=== PATIENT | female | born 1980 | race Caucasian/White ===

== ENCOUNTER 2017-12-02 06:52 | Day surgery (SDC) | payer MEDICAID ==
[~2017-12-02] VITALS: Ht 162.6 cm; Wt 91.5 kg
[2017-12-02] MEDS ORDERED: LIDOCAINE HCL/PF 2% 5 ML VIAL IM ONE ×2 (06:53)
[2017-12-02] MEDS ORDERED: ROCURONIUM BROMIDE 10 MG/ML 5 ML VIAL IVP ONE (06:53)
[2017-12-02] MEDS ORDERED: FentaNYL CITRATE-PF 250 MCG/5 ML VIAL IVP ONE (06:53)
[2017-12-02] MEDS ORDERED: PROPOFOL 1% 20 ML VIAL IVP ONE ×2 (06:53)
[2017-12-02] MEDS ORDERED: ONDANSETRON HCL 4 MG/2 ML VIAL IVP ONE ×2 (06:53)
[2017-12-02] MEDS ORDERED: MIDAZOLAM HCL 2 MG/2 ML VIAL IVP ONE (06:53)
[2017-12-02] MEDS ORDERED: KETOROLAC TROMETHAMINE 60 MG/2 ML VIAL IM ONE ×2 (06:53)
[2017-12-02] MEDS ORDERED: DEXAMETHASONE SOD PHOS 4 MG/ML VIAL IVP ONE ×2 (06:53)
[2017-12-02] MEDS ORDERED: RINGERS SOLUTION,LACTATED 1,000 ML IV ONE ×3 (07:15→11:58)
[2017-12-02 07:38] LABS: BASOPHILS % (AUTO) 0.6 % (0.0-2.0); HEMATOCRIT 41.9 % (36-46); HEMOGLOBIN 14.1 g/dL (12.0-16.0); LYMPHOCYTES # (AUTO) 3.9 K/uL (1.0-4.8); LYMPHOCYTES % (AUTO) 41.1 % (22.0-44.0); MEAN CORPUSCULAR HEMOGLOBIN 28.9 pg (26.0-34.0); MEAN CORPUSCULAR HGB CONC 33.5 G/dL (31.0-37.0); MEAN CORPUSCULAR VOLUME 86 fL (80-100); MONOCYTES # (AUTO) 0.4 K/uL (0.1-1.0); NEUTROPHILS # (AUTO) 4.9 K/uL (1.8-7.7); NEUTROPHILS % (AUTO) 51.3 % (40.0-70.0); PLATELET COUNT (AUTO) 265 K/uL (150-450); RED BLOOD CELL COUNT(AUTO) 4.87 MIL/uL (4.00-5.20); RED CELL DISTRIBUTION WIDTH 13.7 % (11.5-14.5)
[2017-12-02] MEDS ORDERED: METF500T4 PO (07:44)
[2017-12-02] MEDS ORDERED: PERCT PO (07:44)
[2017-12-02] MEDS ORDERED: IBUP-2071 PO (07:44)
[2017-12-02] MEDS ORDERED: METO25 PO (07:44)
[2017-12-02 07:48] LABS: ANION GAP 10 mmol/L (8-16); CALCIUM, TOTAL 9.3 mg/dL (8.8-10.5); CARBON DIOXIDE 27 mmol/L (22-29); CHLORIDE 102 mmol/L (98-107); CREATININE 0.73 mg/dL (0.60-1.30); GLOMERULAR FILTR. RATE CALC > 60 mL/min (>60); GLUCOSE,RANDOM 146 mg/dL (70-110); POTASSIUM 3.5 mmol/L (3.5-5.1); SODIUM SERUM 139 mmol/L (136-145); UREA NITROGEN, BLOOD 17 mg/dL (7-18)
[2017-12-02 07:54] LABS: ALANINE AMINOTRANSFERASE 36 U/L (12-78); ALKALINE PHOSPHATASE 49 U/L (46-116); ASPARTATE AMINOTRANSFERASE 15 U/L (15-37); BILIRUBIN,TOTAL 0.3 mg/dL (0.1-1.0); TOTAL PROTEIN, SERUM 8.1 g/dL (6.4-8.2)
[2017-12-02] MEDS ORDERED: HYDROmorphone 2 MG/ML SYRINGE IVP PRN (10:00)
[2017-12-02] MEDS ORDERED: MEPERIDINE-PF 25 MG/ML SYRINGE IVP PRN (10:00)
[2017-12-02] MEDS ORDERED: BUPIVACAINE HCL/PF 0.5% 30 ML VIAL ONE (10:07)
[2017-12-02] MEDS ORDERED: LIDOCAINE HCL 1%/EPI 1:200,000/PF 30 ML VIAL ONE (10:07)
[2017-12-02] MEDS ORDERED: HYDROCODONE/ACETAMINOPHEN 5-325 MG TABLET PO PRN (11:45)
[2017-12-02] MEDS ORDERED: ACETAMINOPHEN 500 MG TABLET PO PRN (11:45)
[2017-12-02] MEDS ORDERED: IBUPROFEN 600 MG TABLET PO PRN (11:45)
[2017-12-02] MEDS ORDERED: CefoTEtan DISOD 1 GM/DEXTROSE 50 ML IV ONE (12:00)
[2017-12-02] MEDS ORDERED: FentaNYL CITRATE-PF 100 MCG/2 ML VIAL ONE (12:45)
[2017-12-02] MEDS: FentaNYL CITRATE-PF 100 MCG/2 ML VIAL IVP PRN ×2 (12:48→13:01)
[2017-12-02] MEDS ORDERED: HYDROCODONE/ACETAMINOPHEN 5-325 MG TABLET ONE (13:56)
[2017-12-02] MEDS ORDERED: IBUPROFEN 800 MG TABLET PO PRN (15:30)
[2017-12-02] MEDS ORDERED: OXYGEN THERAPY IH SCH (20:00)
== END 2017-12-02 15:15 | disposition home or self-care (01) ==
LOC: SURGERY 06:52
PROVIDERS: ATTEND Surgery
DX: K80.10 Calculus of gallbladder with chronic cholecystitis without obstruction (principal); E66.9 Obesity, unspecified; I10 Essential (primary) hypertension; E11.9 Type 2 diabetes mellitus without complications; E78.00 Pure hypercholesterolemia, unspecified; Z98.890 Other specified postprocedural states; Z79.84 Long term (current) use of oral hypoglycemic drugs; Z79.1 Long term (current) use of non-steroidal anti-inflammatories (NSAID); Z79.899 Other long term (current) drug therapy; Z68.34 Body mass index [BMI] 34.0-34.9, adult
CPT/HCPCS: 36415; 47562; 80053; 84703; 85025; 88304; 93005; J1100; J1885; J2250; J2405; J2704; J3010 ×2; J3490 ×5; J7120